=== PATIENT | female | born 1980 ===

== ENCOUNTER 2025-06-30 15:46 | Outpatient (CLI) | payer OTHER | END 2025-06-30 17:00 | disposition home or self-care (01) | LOC: Rad HDHVI 15:46 | PROVIDERS: ATTEND Internal Medicine Cardiovascular Disease | DX: I07.1 Rheumatic tricuspid insufficiency (principal); R94.31 Abnormal electrocardiogram [ECG] [EKG]; R00.1 Bradycardia, unspecified | CPT/HCPCS: 93306 ==